=== PATIENT | male | born 1970 | race Hispanic/Latino ===

== ENCOUNTER 2017-05-21 21:47 | Emergency (ER) | payer OTHER, SELFPAY ==
[2017-05-21 22:25] LABS: #Eosinphils 0.3 thou/uL (0.0-0.7); #Lymphocytes 1.8 thou/uL (1.20-3.40); #Neutrophils 7.5 thou/uL (1.40-6.50); %Basophils 0.4 % (0.0-1.0); %Lymphocytes 17.1 % (21.0-51.0); %Monocytes 8.9 % (0.0-10.0); Hematocrit 51.4 % (42.0-52.0); Mean Platelet Volume 7.1 fL (7.4-10.4); White Blood Cell (WBC) Count 10.6 thou/uL (4.8-10.8)
[2017-05-21 22:46] LABS: ALT (SGPT) 53 U/L (8-55); AST (SGOT) 36 U/L (5-34); Alkaline Phosphatase 117 U/L (40-150); Anion Gap 14 mmol/L (10-20); BUN (Urea Nitrogen) 14 mg/dL (8.9-20.6); Bilirubin, Total 0.8 mg/dL (0.2-1.2); Calc. Creatinine Clearance 0 mL/min (70-130); Calcium 9.6 mg/dL (7.8-10.44); Carbon Dioxide 24 mmol/L (22-29); Chloride 103 mmol/L (98-107); Estimated GFR-MDRD 78; Globulin 3.5 g/dL (2.4-3.5); Protein, Total 7.8 g/dL (6.0-8.3)
[2017-05-21] MEDS ORDERED: Acetaminophen 500 MG TAB ONE (23:19)
[2017-05-21 23:33] LABS: Bilirubin Negative (Negative); Blood, Urine Negative (Negative); Glucose, Urine (Dipstick) 250 mg/dL (Negative); Ketone, Urine Negative (Negative); Nitrite Negative (Negative); Protein, Urine (Dipstick) Negative (Neg-Trace)
[2017-05-21 23:36] LABS: Bacteria/HPF Rare-Few HPF (None Seen); Hyaline Casts/LPF 0-3 HYALINE CAST LPF (0-3 Hyaline); RBC/HPF 0-3 HPF (0-3)
== END 2017-05-22 00:38 | disposition home or self-care (01) ==
LOC: ERS 21:47
DX: E11.9 Type 2 diabetes mellitus without complications (principal); N39.0 Urinary tract infection, site not specified; F17.210 Nicotine dependence, cigarettes, uncomplicated
CPT/HCPCS: 36415; 36416; 80053; 81003; 81015; 85025; 87086; 96360; 99406

== ENCOUNTER 2017-11-19 19:43 | Emergency (ER) | payer SELFPAY ==
[2017-11-19] MEDS ORDERED: Ketorolac Tromethamine 30 MG/ML VIAL ONE (20:09)
[2017-11-19 20:15] LABS: #Basophils 0.1 thou/uL (0.0-0.2); #Eosinphils 0.2 thou/uL (0.0-0.7); #Lymphocytes 2.5 thou/uL (1.20-3.40); #Monocytes 0.8 thou/uL (0.11-0.59); #Neutrophils 6.7 thou/uL (1.40-6.50); %Basophils 0.9 % (0.0-1.0); %Eosinophils 1.6 % (0.0-10.0); %Lymphocytes 24.7 % (21.0-51.0); %Monocytes 7.9 % (0.0-10.0); Mean Corpuscular HGB CONC 36.4 g/dL (32.0-36.0); Mean Corpuscular Hemoglobin 31.7 pg (27.0-31.0); Mean Platelet Volume 7.3 fL (7.4-10.4); Platelet Count 201 thou/uL (130-400); RBC Distribution Width 11.6 % (11.5-14.5); Red Blood Cell (RBC) Count 5.68 mill/uL (4.70-6.10); White Blood Cell (WBC) Count 10.3 thou/uL (4.8-10.8)
--- NOTE | 2017-11-19 20:32 | RAD ---
RADIOGRAPH CHEST 1 VIEW: 11/19/17 HISTORY: 47-year-old male status post acute chest trauma from fall. FINDINGS: There are no air space densities, pulmonary edema, pneumothorax, or cardiomegaly. The lateral costop hrenic angles are sharp. IMPRESSION: No acute cardiopulmonary findings. igselle [] POS: [facility]
[2017-11-19 20:34] LABS: ALT (SGPT) 73 U/L (8-55); AST (SGOT) 45 U/L (5-34); Albumin 4.8 g/dL (3.5-5.0); Alkaline Phosphatase 166 U/L (40-150); Anion Gap 18 mmol/L (10-20); BUN (Urea Nitrogen) 22 mg/dL (8.9-20.6); Bilirubin, Total 0.9 mg/dL (0.2-1.2); Calc. Creatinine Clearance 0 mL/min (70-130); Calcium 9.8 mg/dL (7.8-10.44); Carbon Dioxide 20 mmol/L (22-29); Chloride 97 mmol/L (98-107); Estimated GFR-MDRD 58; Globulin 3.8 g/dL (2.4-3.5); Glucose 324 mg/dL (70-105); Potassium 4.2 mmol/L (3.5-5.1); Protein, Total 8.6 g/dL (6.0-8.3); Sodium 131 mmol/L (136-145)
--- NOTE | 2017-11-19 20:34 | CT ---
CT OF THE BRAIN WITHOUT CONTRAST: 11/19/17 COMPARISON: None. HISTORY: Fell off a ladder off the top of his roof just prior to arrival with head trauma and headache. TECHNIQUE: Multiple contiguous axial images were obtained in a CT of the brain without contrast. FINDINGS: the brain is normal in morphology and attenuation without focal lesions or confluent areas of infarct ion. There is no evidence of hydrocephalus, intracranial hemorrhage or extra-axial fluid collections. The calvarium and overlying soft tissues are unremarkable. The visualized paranasal sinuses and masto id air cells are well aerated. IMPRESSION: No evidence of acute intracranial abnormality. POS: [facility]
--- NOTE | 2017-11-19 20:40 | CT ---
CT CERVICAL SPINE WITHOUT CONTRAST: 11/19/17 COMPARISON: None. HISTORY: Fall off a ladder from the roof just prior to arrival with neck pain. TECHNIQUE: Multiple contiguous axial images were obtained in a CT of the cervical spine without contrast. Sagitt al and coronal reformats were performed. FINDINGS: The vertebral bodies and intervertebral discs demonstrate normal height and alignment without fractur e or subluxation. No degenerative changes are seen. No prevertebral soft tissue swelling is present. IMPRESSION: No evidence of acute osseous abnormality of the cervical spine. POS: [facility]
[2017-11-19 21:13] LABS: Bilirubin Small (Negative); Blood, Urine Moderate (Negative); Clarity CLEAR (Clear); Glucose, Urine (Dipstick) >=1000 mg/dL (Negative); Leukocyte Negative (Negative); Nitrite Negative (Negative); Protein, Urine (Dipstick) 30 mg/dL (Neg-Trace); pH, Urine 5.5 (5.0-9.0)
[2017-11-19 21:15] LABS: Bacteria/HPF None Seen HPF (None Seen); Hyaline Casts/LPF 4-6 HYALINE CAST LPF (0-3 Hyaline); Pathc Cast-AUWi Flag 0.87 (0-2.49); Squamous Epithelial 0-3 HPF (0-3); WBC/HPF 0-3 HPF (0-3)
[2017-11-19 21:16] LABS: Specific Gravity, Urine 1.048 (1.002-1.036)
--- NOTE | 2017-11-19 21:19 | CT ---
CT ABDOMEN WITH CONTRAST CT PELVIS WITH CONTRAST: 11/19/17 HISTORY: 47-year-old male status post acute traumatic injury to the abdomen and pelvis due to fall from roof. FINDINGS: Liver: No laceration. Spleen: No laceration. Pancreas: No laceration or surrounding fat stranding. Kidneys: No laceration or hydronephrosis. small, approximately 2 to 4 mm calculus in a left renal upp er pole calyx. Bladder: No rupture. Abdominal aorta: No rupture or dissection. Free fluid: None. Pelvic bones: No displaced acute fracture identified. Lumbar vertebral body heights are maintained, with no evidence of acute compression fracture. IMPRESSION: 1. No evidence of acute traumatic injury within the abdomen or pelvis. 2. Incidental finding of a currently nonobstructing left calculus of kidney (nephrolithiasis). giselle nielsen POS: [facility]
--- NOTE | 2017-11-19 21:39 | RAD ---
RADIOGRAPH LEFT LEG TIBIA AND FIBULA 2 VIEWS: 11/19/17 HISTORY: 47-year-old male status post acute left leg trauma due to fall. FINDINGS: No acute fracture of the tibia or fibula. IMPRESSION: Negative. POS: [facility]
--- NOTE | 2017-11-19 21:57 | RAD ---
RADIOGRAPH LEFT KNEE 4 VIEWS: 11/19/17 HISTORY: 47-year-old male with traumatic left knee pain due to fall. FINDINGS: No acute fracture or dislocation. Chronic appearing mild fragmentation at tibial tubercle may represe nt sequelae of Mei-Schlatter disease. IMPRESSION: No acute fracture. POS: [facility]
== END 2017-11-19 22:23 | disposition home or self-care (01) ==
LOC: ERS 19:43
DX: S10.93XA Contusion of unspecified part of neck, initial encounter (principal); N20.0 Calculus of kidney; E11.9 Type 2 diabetes mellitus without complications; L40.9 Psoriasis, unspecified; F17.210 Nicotine dependence, cigarettes, uncomplicated; Z79.84 Long term (current) use of oral hypoglycemic drugs; W11.XXXA Fall on and from ladder, initial encounter
CPT/HCPCS: 36415; 70450; 71045; 72125; 74177; 80053; 81003; 81015; 85025; 86850; 86900; 86901; 96374; 96375; J1885; J2270

== ENCOUNTER 2018-02-15 13:34 | Emergency (ER) | payer SELFPAY ==
[2018-02-15 15:08] LABS: #Basophils 0.1 thou/uL (0.0-0.2); #Eosinphils 0.2 thou/uL (0.0-0.7); #Lymphocytes 2.2 thou/uL (1.20-3.40); #Monocytes 0.7 thou/uL (0.11-0.59); #Neutrophils 6.1 thou/uL (1.40-6.50); %Basophils 1.4 % (0.0-1.0); %Eosinophils 2.5 % (0.0-10.0); %Lymphocytes 23.4 % (21.0-51.0); %Monocytes 7.5 % (0.0-10.0); %Neutrophils 65.2 % (42.0-75.0); Hemoglobin 16.7 g/dL (14.0-18.0); Mean Corpuscular HGB CONC 34.2 g/dL (32.0-36.0); Mean Corpuscular Hemoglobin 30.8 pg (27.0-31.0); Mean Platelet Volume 7.1 fL (7.4-10.4); Platelet Count 234 thou/uL (130-400); RBC Distribution Width 11.7 % (11.5-14.5); Red Blood Cell (RBC) Count 5.42 mill/uL (4.70-6.10); White Blood Cell (WBC) Count 9.3 thou/uL (4.8-10.8)
[2018-02-15] MEDS ORDERED: Ibuprofen 800 MG TAB ONE (15:30)
[2018-02-15 15:31] LABS: ALT (SGPT) 87 U/L (8-55); AST (SGOT) 48 U/L (5-34); Albumin 4.5 g/dL (3.5-5.0); Alkaline Phosphatase 139 U/L (40-150); Anion Gap 13 mmol/L (10-20); BUN (Urea Nitrogen) 22 mg/dL (8.9-20.6); Bilirubin, Total 0.9 mg/dL (0.2-1.2); CK (CPK) 78 U/L (30-200); Calc. Creatinine Clearance 0 mL/min (70-130); Carbon Dioxide 24 mmol/L (22-29); Chloride 97 mmol/L (98-107); Estimated GFR-MDRD 61; Globulin 3.5 g/dL (2.4-3.5); Glucose 267 mg/dL (70-105); Potassium 4.4 mmol/L (3.5-5.1); Sodium 130 mmol/L (136-145)
[2018-02-15 15:34] LABS: CKMB 1.3 ng/mL (0-6.6); Troponin I Less than 0.010 ng/mL (< 0.028)
[2018-02-15 16:07] LABS: Bilirubin Negative (Negative); Blood, Urine Negative (Negative); Clarity CLEAR (Clear); Glucose, Urine (Dipstick) >=1000 mg/dL (Negative); Leukocyte Negative (Negative); Nitrite Negative (Negative); Protein, Urine (Dipstick) Negative (Neg-Trace); Specific Gravity, Urine 1.025 (1.002-1.036); pH, Urine 5.5 (5.0-9.0)
--- NOTE | 2018-02-19 12:25 | EKG ---
Test Reason : Blood Pressure : / mmHG Vent. Rate : 069 BPM Atrial Rate : 069 BPM P-R Int : 158 ms QRS Dur : 076 ms QT Int : 380 ms P-R-T Axes : 067 027 009 degrees QTc Int : 407 ms Normal sinus rhythm with sinus arrhythmia Possible Left atrial enlargement Borderline ECG Confirmed by AMY BENNETT ([id number]), legal editor TERRI GONZALEZ ([id number]) on 02/19/2018 12:24:46 PM Referred By: Confirmed By:AMY BENNETT
== END 2018-02-15 17:09 | disposition home or self-care (01) ==
LOC: ERS 13:34
DX: E86.0 Dehydration (principal); E11.65 Type 2 diabetes mellitus with hyperglycemia; F17.210 Nicotine dependence, cigarettes, uncomplicated; Z79.84 Long term (current) use of oral hypoglycemic drugs
CPT/HCPCS: 36416; 80053; 81003; 82553; 84484; 85025; 93005; 96360; 96361

== ENCOUNTER 2018-06-16 00:39 | Emergency (ER) | payer SELFPAY ==
[2018-06-16] MEDS ORDERED: Lidocaine 1% w/Epinephrine 1:100K 20 ML VIAL ONE (02:19)
== END 2018-06-16 02:54 | disposition home or self-care (01) ==
LOC: ERS 00:39
DX: L02.415 Cutaneous abscess of right lower limb (principal); E11.9 Type 2 diabetes mellitus without complications; F17.210 Nicotine dependence, cigarettes, uncomplicated; Z79.84 Long term (current) use of oral hypoglycemic drugs
CPT/HCPCS: 10061; J2001

== ENCOUNTER 2018-06-16 15:25 | Emergency (ER) | payer SELFPAY | END 2018-06-16 16:00 | disposition left against medical advice (07) | LOC: ERS 15:25 | DX: Z53.21 Procedure and treatment not carried out due to patient leaving prior to being seen by health care provider (principal) ==

== ENCOUNTER 2018-06-17 22:53 | Emergency (ER) | payer SELFPAY ==
[2018-06-17] MEDS ORDERED: Bacitracin Zinc 1 Packet ONE (23:18)
== END 2018-06-17 23:19 | disposition home or self-care (01) ==
LOC: ERS 22:53
DX: L03.115 Cellulitis of right lower limb (principal); Z71.6 Tobacco abuse counseling; F17.200 Nicotine dependence, unspecified, uncomplicated; E11.9 Type 2 diabetes mellitus without complications
CPT/HCPCS: 99406

== ENCOUNTER 2018-12-01 01:32 | Emergency (ER) | payer SELFPAY ==
[2018-12-01] MEDS ORDERED: Ketorolac Tromethamine 60 MG/2 ML VIAL ONE (02:00)
== END 2018-12-01 02:20 | disposition home or self-care (01) ==
LOC: ERS 01:32
DX: K08.89 Other specified disorders of teeth and supporting structures (principal); F17.210 Nicotine dependence, cigarettes, uncomplicated; E11.9 Type 2 diabetes mellitus without complications; Z79.84 Long term (current) use of oral hypoglycemic drugs
CPT/HCPCS: 96372; J1885